=== PATIENT | female | born 1940 | race Asian ===

== ENCOUNTER 2020-03-28 10:03 | Inpatient (IN) | payer MEDICARE, MEDICAID ==
[~2020-03-28] VITALS: Ht 149.9 cm; Wt 69.3 kg
[2020-03-28] MEDS ORDERED: MAGOX PO (10:19)
[2020-03-28] MEDS ORDERED: WARF1 PO (10:19)
[2020-03-28] MEDS ORDERED: ATEN-188 PO (10:19)
[2020-03-28 10:54] LABS: BASOPHILS % (AUTO) 0.9 % (0.0-2.0); EOSINOPHILS % (AUTO) 1.2 % (1.0-6.0); HEMATOCRIT 43.1 % (36-46); HEMOGLOBIN 13.4 g/dL (12.0-16.0); LYMPHOCYTES # (AUTO) 1.1 K/uL (1.0-4.8); LYMPHOCYTES % (AUTO) 19.4 % (22.0-44.0); MEAN CORPUSCULAR HEMOGLOBIN 21.2 pg (26.0-34.0); MEAN CORPUSCULAR VOLUME 68 fL (80-100); MONOCYTES # (AUTO) 0.3 K/uL (0.1-1.0); NEUTROPHILS # (AUTO) 4.2 K/uL (1.8-7.7); NEUTROPHILS % (AUTO) 72.5 % (40.0-70.0); PLATELET COUNT (AUTO) 161 K/uL (150-450); RED BLOOD CELL COUNT(AUTO) 6.31 MIL/uL (4.00-5.20); RED CELL DISTRIBUTION WIDTH 15.8 % (11.5-14.5)
[2020-03-28 11:09] LABS: CALCIUM, TOTAL 9.3 mg/dL (8.8-10.5); CREATININE 0.92 mg/dL (0.60-1.30); POTASSIUM 4.4 mmol/L (3.5-5.1)
[2020-03-28 11:11] LABS: INR 1.1 (0.9-1.1); PROTHROMBIN TIME 10.8 SEC (9.4-11.6)
[2020-03-28 11:15] LABS: ALBUMIN 3.5 g/dL (3.4-5.0); BILIRUBIN,TOTAL 0.6 mg/dL (0.1-1.0); TOTAL PROTEIN, SERUM 7.7 g/dL (6.4-8.2)
[2020-03-28] MEDS ORDERED: ACETAMINOPHEN 325 MG TABLET PO PRN ×2 (14:15→16:15)
[2020-03-28] MEDS ORDERED: ONDANSETRON HCL 4 MG/2 ML VIAL IVP PRN ×2 (14:15→16:15)
[2020-03-28] MEDS ORDERED: 0.9% SODIUM CHLORIDE 10 ML SYRINGE IVP PRN (14:15)
[2020-03-28] MEDS ORDERED: ZOLPIDEM TARTRATE 5 MG TABLET PO PRN (16:15)
[2020-03-28] MEDS ORDERED: BISACODYL 10 MG RECTAL RECTAL SUPPOSITORY PR PRN (16:15)
[2020-03-28] MEDS ORDERED: HYDROCODONE/ACETAMINOPHEN 5-325 MG TABLET PO PRN (16:15)
[2020-03-28] MEDS ORDERED: MORPHINE SULFATE 2 MG/ML SYRINGE IVP PRN (16:15)
[2020-03-28] MEDS ORDERED: MAGNESIUM HYDROXIDE SUSPENSION 30 ML UDCUP PO PRN (16:15)
[2020-03-28] MEDS ORDERED: HydrALAZINE HCL 20 MG/ML VIAL IVP PRN (16:15)
[2020-03-28 16:53] LABS: APPEARANCE,URINE CLEAR (CLEAR); BILIRUBIN,URINE NEGATIVE (NEGATIVE); GLUCOSE, URINE (UA) NEGATIVE (NEGATIVE); KETONES,URINE NEGATIVE (NEGATIVE); LEUKOCYTE ESTERASE ,URINE NEGATIVE (NEGATIVE); NITRATE,URINE NEGATIVE (NEGATIVE); OCCULT BLOOD,URINE NEGATIVE (NEGATIVE); PH,URINE 7.5 (5.0-8.0); PROTEIN,URINE NEGATIVE (NEGATIVE); UROBILINOGEN,URINE 0.2 mg/dL (<=1.0)
[2020-03-28 17:23] VITALS: BP 163/99
[2020-03-28] MEDS ORDERED: PNEUMOCOCCAL VACCINE POLYVALENT 0.5 ML VIAL [PPSV23] IM ONE (18:15)
[2020-03-28 19:42] VITALS: BP 147/78
[2020-03-28] MEDS: DOCUSATE SODIUM 100 MG CAPSULE PO SCH (20:53)
[2020-03-28 23:46] VITALS: BP 149/69
[2020-03-28 23:50] VITALS: BP 156/73
[2020-03-28 23:52] VITALS: BP 138/71
[2020-03-29] MEDS: HEPARIN SODIUM,PORCINE 5,000 UNITS/ML VIAL SQ SCH ×2 (00:02→08:02)
[2020-03-29 05:26] VITALS: BP 136/63
[2020-03-29 07:29] LABS: BASOPHILS % (AUTO) 0.6 % (0.0-2.0); EOSINOPHILS % (AUTO) 1.9 % (1.0-6.0); HEMATOCRIT 44.2 % (36-46); HEMOGLOBIN 13.6 g/dL (12.0-16.0); LYMPHOCYTES # (AUTO) 1.9 K/uL (1.0-4.8); LYMPHOCYTES % (AUTO) 43.9 % (22.0-44.0); MEAN CORPUSCULAR HEMOGLOBIN 21.3 pg (26.0-34.0); MEAN CORPUSCULAR HGB CONC 30.9 G/dL (31.0-37.0); MEAN CORPUSCULAR VOLUME 69 fL (80-100); MONOCYTES # (AUTO) 0.4 K/uL (0.1-1.0); MONOCYTES % (AUTO) 8.3 % (2.0-9.0); NEUTROPHILS % (AUTO) 45.3 % (40.0-70.0); PLATELET COUNT (AUTO) 161 K/uL (150-450); RED BLOOD CELL COUNT(AUTO) 6.41 MIL/uL (4.00-5.20); RED CELL DISTRIBUTION WIDTH 15.8 % (11.5-14.5)
[2020-03-29 07:38] VITALS: BP 152/85
[2020-03-29 07:47] VITALS: BP 147/94
[2020-03-29 07:48] VITALS: BP 126/78
[2020-03-29 08:02] LABS: ALANINE AMINOTRANSFERASE 31 U/L (12-78); ALBUMIN 3.3 g/dL (3.4-5.0); ALKALINE PHOSPHATASE 75 U/L (46-116); ANION GAP 6 mmol/L (8-16); ASPARTATE AMINOTRANSFERASE 26 U/L (15-37); BILIRUBIN,TOTAL 0.8 mg/dL (0.1-1.0); CALCIUM, TOTAL 9.3 mg/dL (8.8-10.5); CARBON DIOXIDE 27 mmol/L (22-29); CHLORIDE 106 mmol/L (98-107); CREATININE 0.79 mg/dL (0.60-1.30); GLUCOSE,RANDOM 84 mg/dL (70-110); SODIUM SERUM 139 mmol/L (136-145); TOTAL PROTEIN, SERUM 7.7 g/dL (6.4-8.2); UREA NITROGEN, BLOOD 16 mg/dL (7-18)
[2020-03-29] MEDS: DOCUSATE SODIUM 100 MG CAPSULE PO SCH (08:03)
[2020-03-29 08:14] LABS: INR 1.1 (0.9-1.1); PROTHROMBIN TIME 11.4 SEC (9.4-11.6)
[2020-03-29 08:15] LABS: GLOMERULAR FILTR. RATE CALC > 60 mL/min (>60)
[2020-03-29] MEDS ORDERED: PANTOPRAZOLE SODIUM 40 MG DR TABLET PO SCH (09:00)
[2020-03-29] MEDS ORDERED: ATENOLOL 50 MG TABLET PO SCH (09:00)
[2020-03-29 10:56] VITALS: BP 108/57
[2020-03-29] MEDS ORDERED: MECL25TA39 PO (13:55)
[2020-03-29] MEDS ORDERED: WARFARIN SODIUM 1 MG TABLET PO SCH (17:00)
== END 2020-03-29 15:10 | disposition home or self-care (01) | DRG 149 ==
LOC: EMS 10:09 → 5S 16:01
PROVIDERS: ADMIT Internal Medicine; ATTEND Internal Medicine
DX: H81.10 Benign paroxysmal vertigo, unspecified ear (principal); I48.20 Chronic atrial fibrillation, unspecified; G90.8 Other disorders of autonomic nervous system; I10 Essential (primary) hypertension; R51 Headache; E78.00 Pure hypercholesterolemia, unspecified; Z88.8 Allergy status to other drugs, medicaments and biological substances
CPT/HCPCS: 70450; 93005; 93306; 93880; G0378; J1644

== ENCOUNTER → 2020-07-01 | Outpatient (CLI) | payer MEDICARE, MEDICAID ==
[~2020-07-01] MED LIST: ATEN-188 PO; MAGOX PO; MECL25TA39 PO; REGADENOSON 0.4 MG/5 ML PF SYRINGE IVP ONE; SESTAMIBI TC99M/UD ISOTOPE 1 EA INJ INJ ONE; WARF1TAB9 PO
[2020-07-01 09:00] VITALS: BP 169/95
[2020-07-01 09:27] VITALS: BP 147/74
== END | disposition home or self-care (01) ==
LOC: MSR 07:37
PROVIDERS: ATTEND Internal Medicine Cardiovascular Disease
DX: I25.10 Atherosclerotic heart disease of native coronary artery without angina pectoris (principal)
CPT/HCPCS: 78452; 93017; A9500; J2785

== ENCOUNTER 2024-09-13 09:59 | Emergency (ER) | payer MEDICARE ==
[~2024-09-13] VITALS: Ht 157.5 cm; Wt 59.1 kg
[~2024-09-13 09:59] MED LIST changes: +MAGN400T7 PO; -MAGOX PO; -REGADENOSON 0.4 MG/5 ML PF SYRINGE IVP ONE; -SESTAMIBI TC99M/UD ISOTOPE 1 EA INJ INJ ONE
[2024-09-13] MEDS ORDERED: APIX5TAB PO (10:02)
[2024-09-13] MEDS ORDERED: METO-325 PO (10:02)
[2024-09-13] MEDS ORDERED: NITR0.4T52 SL (10:04)
[2024-09-13 10:09] VITALS: TEMP 98.6
[2024-09-13 10:58] LABS: EOSINOPHILS % (AUTO) 1.1 % (1.0-6.0); HEMATOCRIT 40.5 % (36-46); HEMOGLOBIN 12.4 g/dL (12.0-16.0); LYMPHOCYTES # (AUTO) 0.9 K/uL (1.0-4.8); LYMPHOCYTES % (AUTO) 13.3 % (22.0-44.0); MEAN CORPUSCULAR HEMOGLOBIN 21.4 pg (26.0-34.0); MEAN CORPUSCULAR HGB CONC 30.7 G/dL (31.0-37.0); MEAN CORPUSCULAR VOLUME 70 fL (80-100); MONOCYTES # (AUTO) 0.5 K/uL (0.1-1.0); MONOCYTES % (AUTO) 7.5 % (2.0-9.0); NEUTROPHILS # (AUTO) 5.2 K/uL (1.8-7.7); NEUTROPHILS % (AUTO) 77.1 % (40.0-70.0); PLATELET COUNT (AUTO) 174 K/uL (150-450); RED BLOOD CELL COUNT(AUTO) 5.83 MIL/uL (4.00-5.20); RED CELL DISTRIBUTION WIDTH 16.7 % (11.5-14.5); WHITE BLOOD COUNT (AUTO) 6.8 K/uL (4.5-11.0)
[2024-09-13 11:17] LABS: ANION GAP 10 mmol/L (8-16); CALCIUM, TOTAL 8.8 mg/dL (8.8-10.5); CARBON DIOXIDE 28 mmol/L (22-29); CHLORIDE 102 mmol/L (98-107); CREATININE 0.84 mg/dL (0.60-1.30); GLOMERULAR FILTR. RATE CALC > 60 mL/min (>60); GLUCOSE,RANDOM 141 mg/dL (70-110); POTASSIUM 4.5 mmol/L (3.5-5.1); SODIUM SERUM 140 mmol/L (136-145); UREA NITROGEN, BLOOD 25 mg/dL (7-18)
[2024-09-13 11:26] LABS: TROPONIN I-HIGH SENSITIVITY 4 ng/L (<51)
[2024-09-13 11:44] VITALS: BP 140/69; PULSE 75; RESP 16; O2SAT 99
== END 2024-09-13 13:25 | disposition home or self-care (01) ==
LOC: EMS 10:00
DX: R42 Dizziness and giddiness (principal); E78.00 Pure hypercholesterolemia, unspecified; I10 Essential (primary) hypertension; I25.10 Atherosclerotic heart disease of native coronary artery without angina pectoris; I48.91 Unspecified atrial fibrillation; Z79.01 Long term (current) use of anticoagulants; Z95.5 Presence of coronary angioplasty implant and graft; Z88.8 Allergy status to other drugs, medicaments and biological substances
CPT/HCPCS: 80048; 83735; 84484; 85025; 93005; 99284

== ENCOUNTER 2025-09-26 12:08 | Inpatient (IN) | payer MEDICARE ==
[~2025-09-26] VITALS: Ht 149.9 cm; Wt 54.2 kg
[~2025-09-26 12:08] MED LIST changes: +APIX5TAB PO; -ATEN-188 PO; -MAGN400T7 PO; -MECL25TA39 PO; +METO-325 PO; +NITR0.4T52 SL; -WARF1TAB9 PO
[2025-09-26] MEDS ORDERED: IOHEXOL 350 MG/ML 100 ML VIAL ONE (12:22)
[2025-09-26 12:57] LABS: CALCIUM, TOTAL 8.9 mg/dL (8.8-10.5); CREATININE 0.58 mg/dL (0.60-1.30); GLOMERULAR FILTR. RATE CALC > 60 mL/min (>60); GLUCOSE,RANDOM 78 mg/dL (70-110); SODIUM SERUM 141 mmol/L (136-145); UREA NITROGEN, BLOOD 30 mg/dL (7-18)
[2025-09-26 13:02] LABS: ASPARTATE AMINOTRANSFERASE 26 U/L (15-37); CHOL/HDL RATIO 3.5 (3.9-5.7); LDL CHOL (CALC.) 154 mg/dL (0-130); TOTAL PROTEIN, SERUM 7.4 g/dL (6.4-8.2)
[2025-09-26 13:03] LABS: TROPONIN I-HIGH SENSITIVITY 7 ng/L (<51)
[2025-09-26 13:13] LABS: PLATELET COUNT (AUTO) 517 K/uL (150-450); RED BLOOD CELL COUNT(AUTO) 6.74 MIL/uL (4.00-5.20); RED CELL DISTRIBUTION WIDTH 17.1 % (11.5-14.5); WHITE BLOOD COUNT (AUTO) 5.5 K/uL (4.5-11.0)
[2025-09-26] MEDS: CLOPIDOGREL BISULFATE 300 MG TABLET PO ONE (13:41)
[2025-09-26] MEDS ORDERED: ACETAMINOPHEN 325 MG TABLET PO PRN (13:45)
[2025-09-26] MEDS ORDERED: ONDANSETRON HCL 4 MG/2 ML VIAL IVP PRN (13:45)
[2025-09-26 13:51] LABS: RBC MORPHOLOGY COMMENT ABNORMAL RBC MORPH
[2025-09-26] MEDS: ASPIRIN 300 MG RECTAL SUPPOSITORY PR ONE (13:57)
[2025-09-26 13:58] LABS: APPEARANCE,URINE CLEAR (CLEAR); GLUCOSE, URINE (UA) NEGATIVE (NEGATIVE); LEUKOCYTE ESTERASE ,URINE NEGATIVE (NEGATIVE); NITRATE,URINE NEGATIVE (NEGATIVE); OCCULT BLOOD,URINE NEGATIVE (NEGATIVE); PH,URINE DRUG SCREEN 5.5 (5.0-8.0); SPECIFIC GRAVITIY, URINE 1.047 (1.003-1.030)
[2025-09-26 14:04] LABS: AMPHET/METH SCREEN,URINE NEGATIVE (NEGATIVE); BARBITURATE SCREEN, URINE NEGATIVE (NEGATIVE); CANNABINOID SCREEN,URINE NEGATIVE (NEGATIVE); COCAINE SCREEN,URINE NEGATIVE (NEGATIVE); METHADONE SCREEN, URINE NEGATIVE (NEGATIVE)
[2025-09-26 14:08] LABS: ALCOHOL, URINE DRUG SCREEN NEGATIVE (NEGATIVE)
[2025-09-26 14:24] LABS: SQUAMOUS EPITHELIAL CELL,UR Rare /LPF (None Seen)
[2025-09-26] MEDS: 1: MAGNESIUM SULFATE 2 GM, MVI, ADULT NO.1 WITH VIT K 10 ML, THIAMINE 100 MG, FOLIC ACID IV SCH (14:40)
[2025-09-26 15:40] LABS: TROPONIN I-HIGH SENSITIVITY 7 ng/L (<51)
[2025-09-26 16:17] VITALS: BP 153/72; PULSE 93; RESP 16; TEMP 98.1; O2SAT 99
[2025-09-26] MEDS: HEPARIN SODIUM,PORCINE 5,000 UNITS/ML VIAL SQ SCH (17:57)
[2025-09-26 18:54] LABS: TROPONIN I-HIGH SENSITIVITY 8 ng/L (<51)
[2025-09-26 20:08] VITALS: BP 157/66; PULSE 77; RESP 15; TEMP 97.5; O2SAT 98
[2025-09-26] MEDS: DOCUSATE SODIUM 100 MG CAPSULE PO SCH (21:00)
[2025-09-26] MEDS: ROSUVASTATIN CALCIUM 10 MG TABLET PO SCH (21:00)
[2025-09-27] VITALS (11 sets, daily range): BP systolic 116–198; BP diastolic 62–106; PULSE 69–101; RESP 17–20; TEMP 97.3–98.6; O2SAT 97–100
[2025-09-27 01:41] LABS: TROPONIN I-HIGH SENSITIVITY 10 ng/L (<51)
[2025-09-27] MEDS ORDERED: SODIUM CHLORIDE 0.9% 0 ML ONE (03:21)
[2025-09-27] MEDS: CLOPIDOGREL BISULFATE 75 MG TABLET PO SCH (07:38)
[2025-09-27] MEDS: ASPIRIN 81 MG CHEWABLE TABLET PO SCH (07:38)
[2025-09-27 07:41] LABS: CALCIUM, TOTAL 8.4 mg/dL (8.8-10.5); CREATININE 0.48 mg/dL (0.60-1.30); GLOMERULAR FILTR. RATE CALC > 60 mL/min (>60); GLUCOSE,RANDOM 70 mg/dL (70-110); SODIUM SERUM 144 mmol/L (136-145); UREA NITROGEN, BLOOD 25 mg/dL (7-18)
[2025-09-27 07:45] LABS: RED BLOOD CELL COUNT(AUTO) 6.34 MIL/uL (4.00-5.20); RED CELL DISTRIBUTION WIDTH 17.1 % (11.5-14.5); WHITE BLOOD COUNT (AUTO) 5.7 K/uL (4.5-11.0)
[2025-09-27 09:21] LABS: RBC MORPHOLOGY COMMENT ABNORMAL RBC MORPH
[2025-09-27 09:23] LABS: PLATELET COUNT (AUTO) 174 K/uL (150-450)
[2025-09-27] MEDS ORDERED: MAGNESIUM SULFATE 2 GM, MVI, ADULT NO.1 WITH VIT K 10 ML, THIAMINE 100 MG, FOLIC ACID 1... IV SCH (12:30)
[2025-09-27] MEDS: 1: MAGNESIUM SULFATE 2 GM, MVI, ADULT NO.1 WITH VIT K 10 ML, THIAMINE 100 MG, FOLIC ACID IV SCH (14:51)
[2025-09-27 16:35] LABS: GLUCOMETER DEV NAME(LOC) 5S.1E; GLUCOSE,POINT OF CARE 127 MG/DL (70-110)
[2025-09-27] MEDS: ASPIRIN 300 MG RECTAL SUPPOSITORY PR SCH (16:54)
[2025-09-27] MEDS: LABETALOL HCL 5 MG/ML 20 ML VIAL IVP PRN (18:33)
[2025-09-28 04:07] VITALS: BP 159/92; PULSE 77; RESP 18; TEMP 97.7; O2SAT 96
[2025-09-28 07:12] VITALS: BP 183/69; PULSE 88; RESP 18; TEMP 97.9; O2SAT 95
[2025-09-28 15:10] VITALS: BP 170/94; PULSE 102; RESP 18; TEMP 97.7; O2SAT 99
[2025-09-28] MEDS: NITROGLYCERIN 2% (1 GM=INCH) OINTMENT PACKET TP SCH (18:20)
[2025-09-28 20:00] VITALS: BP 167/71; PULSE 96; RESP 18; TEMP 97.9; O2SAT 99
[2025-09-28 22:57] VITALS: BP 158/81; PULSE 84; RESP 20; O2SAT 100
[2025-09-29] MEDS: NITROGLYCERIN 2% (1 GM=INCH) OINTMENT PACKET TP SCH (00:06)
[2025-09-29 04:00] VITALS: BP 159/80; PULSE 74; RESP 18; TEMP 97.7; O2SAT 100
[2025-09-29 06:45] LABS: PLATELET COUNT (AUTO) 148 K/uL (150-450); RED BLOOD CELL COUNT(AUTO) 5.86 MIL/uL (4.00-5.20); RED CELL DISTRIBUTION WIDTH 16.7 % (11.5-14.5); WHITE BLOOD COUNT (AUTO) 6.7 K/uL (4.5-11.0)
[2025-09-29 08:00] VITALS: BP 150/83; PULSE 90; RESP 20; TEMP 97.7; O2SAT 100
[2025-09-29 10:27] LABS: RBC MORPHOLOGY COMMENT ABNORMAL RBC MORPH
[2025-09-29 10:38] LABS: CALCIUM, TOTAL 8.1 mg/dL (8.8-10.5); CREATININE 0.51 mg/dL (0.60-1.30); GLOMERULAR FILTR. RATE CALC > 60 mL/min (>60); GLUCOSE,RANDOM 101 mg/dL (70-110); SODIUM SERUM 140 mmol/L (136-145); UREA NITROGEN, BLOOD 14 mg/dL (7-18)
[2025-09-29 16:56] VITALS: BP 195/98; PULSE 95; RESP 20
[2025-09-29 17:29] VITALS: BP 172/71; PULSE 93; RESP 18; TEMP 98.1; O2SAT 97
[2025-09-29 20:02] VITALS: BP 148/62; PULSE 84; RESP 18; TEMP 97.7; O2SAT 96
[2025-09-29] MEDS: DOCUSATE SODIUM 100 MG/10 ML LIQUID UDCUP NG SCH (21:05)
[2025-09-30] VITALS (8 sets, daily range): BP systolic 112–168; BP diastolic 54–84; PULSE 78–98; RESP 18–20; TEMP 97–98.1; O2SAT 95–100
[2025-09-30] MEDS: POLYETHYLENE GLYCOL 3350 17 GM PACKET PO PRN (07:45)
[2025-09-30] MEDS: ASPIRIN 81 MG CHEWABLE TABLET PO SCH (07:45)
[2025-09-30 15:06] LABS: GLUCOMETER DEV NAME(LOC) 4E.2; GLUCOSE,POINT OF CARE 129 MG/DL (70-110)
[2025-09-30] MEDS: IPRATROPIUM BROMIDE 0.5 MG/2.5 ML NEB SOLUTION NEB PRN (16:11)
[2025-09-30] MEDS: BISACODYL 10 MG RECTAL RECTAL SUPPOSITORY PR PRN (16:57)
[2025-09-30 19:16] LABS: GLUCOMETER DEV NAME(LOC) 4E.2; GLUCOSE,POINT OF CARE 121 MG/DL (70-110)
[2025-10-01] VITALS (8 sets, daily range): BP systolic 105–152; BP diastolic 75–87; PULSE 60–101; RESP 1–20; TEMP 97.5–98.6; O2SAT 95–100
[2025-10-01 07:05] LABS: GLUCOMETER DEV NAME(LOC) 4E.2; GLUCOSE,POINT OF CARE 129 MG/DL (70-110)
[2025-10-01 07:05] LABS: GLUCOMETER DEV NAME(LOC) 4E.2; GLUCOSE,POINT OF CARE 133 MG/DL (70-110)
[2025-10-01 11:10] LABS: ABG BASE EXCESS 2.8 mmol/L (-2.0-3.0); ABG CARBOXYHEMOGLOBIN 1.0 % (0.5-1.5); ABG HCO3 27.0 mmol/L (21.0-28.0); ABG METHEMOGLOBIN 0.1 % (0.0-1.5); ABG OXYGEN CONTENT 16.5 mL/dL (15.0-23.0); ABG OXYGEN SATURATION 97.7 % (94.0-98.0); ABG OXYHEMOGLOBIN 96.6 % (94.0-98.0); ABG PCO2 38 mmHg (32.0-45.0); ABG PH 7.466 (7.350-7.450); ABG TOTAL HEMOGLOBIN 12.1 G/dL (12.0-16.0); FRACTIONATED INSPIRED OXYGEN 21.0 % (21-100.0); PO2, ARTERIAL BG 87.5 mmHg (83.0-108.0); SOURCE, BLOOD GAS ARTERIAL; TEMPERATURE, FAHRENHEIT, BG 98.2 FAHREN (96.0-98.6)
[2025-10-01 11:11] LABS: ALLEN TEST, BLOOD GAS Positive; FLOW, BLOOD GAS 0.00 L/min (0.00-15.00); O2 DEVICE,BLOOD GAS ROOM AIR (ROOM AIR); SITE, BLOOD GAS LFT RADIAL
[2025-10-01 12:15] LABS: GLUCOMETER DEV NAME(LOC) 4E.2; GLUCOSE,POINT OF CARE 123 MG/DL (70-110)
[2025-10-01] MEDS: BUDESONIDE 0.5 MG/2 ML NEB SOLUTION NEB SCH (20:36)
[2025-10-02] VITALS (7 sets, daily range): BP systolic 142–163; BP diastolic 59–90; PULSE 81–95; RESP 17–22; TEMP 97.5–97.9; O2SAT 97–100
[2025-10-02] MEDS ORDERED: DEXTROSE 50%-WATER 25 GM/50 ML SYRINGE IVP PRN (06:15)
[2025-10-02 08:26] LABS: GLUCOMETER DEV NAME(LOC) 5S.1E; GLUCOSE,POINT OF CARE 153 MG/DL (70-110)
[2025-10-02 08:26] LABS: GLUCOMETER DEV NAME(LOC) 5S.1E; GLUCOSE,POINT OF CARE 146 MG/DL (70-110)
[2025-10-02 08:26] LABS: GLUCOMETER DEV NAME(LOC) 5N.1D; GLUCOSE,POINT OF CARE 235 MG/DL (70-110)
[2025-10-02 12:30] LABS: GLUCOMETER DEV NAME(LOC) 5N.1D; GLUCOSE,POINT OF CARE 137 MG/DL (70-110)
[2025-10-02] MEDS: INSULIN REGULAR, HUMAN 100 UNITS/ML SQ PRN (18:14)
[2025-10-02 20:10] LABS: GLUCOMETER DEV NAME(LOC) 5S.1E; GLUCOSE,POINT OF CARE 157 MG/DL (70-110)
[2025-10-03] VITALS (11 sets, daily range): BP systolic 148–181; BP diastolic 71–95; PULSE 77–98; RESP 16–18; TEMP 97.5–98; O2SAT 94–99
[2025-10-03 00:05] LABS: GLUCOMETER DEV NAME(LOC) 5N.1D; GLUCOSE,POINT OF CARE 196 MG/DL (70-110)
[2025-10-03 07:26] LABS: PLATELET COUNT (AUTO) 178 K/uL (150-450); RED BLOOD CELL COUNT(AUTO) 5.46 MIL/uL (4.00-5.20); RED CELL DISTRIBUTION WIDTH 17.1 % (11.5-14.5); WHITE BLOOD COUNT (AUTO) 7.8 K/uL (4.5-11.0)
[2025-10-03 07:30] LABS: CALCIUM, TOTAL 9.3 mg/dL (8.8-10.5); CREATININE 0.55 mg/dL (0.60-1.30); GLOMERULAR FILTR. RATE CALC > 60 mL/min (>60); GLUCOSE,RANDOM 179 mg/dL (70-110); SODIUM SERUM 140 mmol/L (136-145); UREA NITROGEN, BLOOD 29 mg/dL (7-18)
[2025-10-03 20:11] LABS: GLUCOMETER DEV NAME(LOC) 5N.1D; GLUCOSE,POINT OF CARE 143 MG/DL (70-110)
[2025-10-03 20:11] LABS: GLUCOMETER DEV NAME(LOC) 5S.1E; GLUCOSE,POINT OF CARE 192 MG/DL (70-110)
[2025-10-03 20:11] LABS: GLUCOMETER DEV NAME(LOC) 5N.1D; GLUCOSE,POINT OF CARE 189 MG/DL (70-110)
[2025-10-03 22:21] LABS: GLUCOMETER DEV NAME(LOC) 5N.1D; GLUCOSE,POINT OF CARE 197 MG/DL (70-110)
[2025-10-04] VITALS (10 sets, daily range): BP systolic 160–181; BP diastolic 70–87; PULSE 79–94; RESP 16–18; TEMP 96.9–98; O2SAT 91–99
[2025-10-04 06:03] LABS: PLATELET COUNT (AUTO) 183 K/uL (150-450); RED BLOOD CELL COUNT(AUTO) 5.70 MIL/uL (4.00-5.20); RED CELL DISTRIBUTION WIDTH 17.3 % (11.5-14.5); WHITE BLOOD COUNT (AUTO) 7.5 K/uL (4.5-11.0)
[2025-10-04 06:10] LABS: CALCIUM, TOTAL 9.3 mg/dL (8.8-10.5); CREATININE 0.53 mg/dL (0.60-1.30); GLOMERULAR FILTR. RATE CALC > 60 mL/min (>60); GLUCOSE,RANDOM 208 mg/dL (70-110); SODIUM SERUM 138 mmol/L (136-145); UREA NITROGEN, BLOOD 35 mg/dL (7-18)
[2025-10-04 06:55] LABS: GLUCOMETER DEV NAME(LOC) 5N.1D; GLUCOSE,POINT OF CARE 214 MG/DL (70-110)
[2025-10-04 16:46] LABS: GLUCOMETER DEV NAME(LOC) 5S.1E; GLUCOSE,POINT OF CARE 195 MG/DL (70-110)
[2025-10-04 20:40] LABS: GLUCOMETER DEV NAME(LOC) 5N.1D; GLUCOSE,POINT OF CARE 203 MG/DL (70-110)
[2025-10-04 22:56] LABS: GLUCOMETER DEV NAME(LOC) 5N.1D; GLUCOSE,POINT OF CARE 179 MG/DL (70-110)
[2025-10-05] VITALS (13 sets, daily range): BP systolic 109–154; BP diastolic 39–71; PULSE 66–96; RESP 16–22; TEMP 97.3–98.5; O2SAT 93–100
[2025-10-05 06:48] LABS: PLATELET COUNT (AUTO) 185 K/uL (150-450); RED BLOOD CELL COUNT(AUTO) 5.06 MIL/uL (4.00-5.20); RED CELL DISTRIBUTION WIDTH 17.5 % (11.5-14.5); WHITE BLOOD COUNT (AUTO) 8.0 K/uL (4.5-11.0)
[2025-10-05 06:54] LABS: RBC MORPHOLOGY COMMENT ABNORMAL RBC MORPH
[2025-10-05 06:57] LABS: CREATININE 0.54 mg/dL (0.60-1.30); GLOMERULAR FILTR. RATE CALC > 60 mL/min (>60); GLUCOSE,RANDOM 167 mg/dL (70-110); SODIUM SERUM 138 mmol/L (136-145); UREA NITROGEN, BLOOD 45 mg/dL (7-18)
[2025-10-05 07:04] LABS: CALCIUM, TOTAL 8.8 mg/dL (8.8-10.5)
[2025-10-05] MEDS ORDERED: SODIUM CHLORIDE 0.9% 1,000 ML ONE (08:56)
[2025-10-05 11:00] LABS: ABG BASE EXCESS 8.3 mmol/L (-2.0-3.0); ABG CARBOXYHEMOGLOBIN 1.0 % (0.5-1.5); ABG HCO3 30.3 mmol/L (21.0-28.0); ABG METHEMOGLOBIN 0.1 % (0.0-1.5); ABG OXYGEN CONTENT 16.2 mL/dL (15.0-23.0); ABG OXYGEN SATURATION 99.9 % (94.0-98.0); ABG OXYHEMOGLOBIN 98.8 % (94.0-98.0); ABG PH 7.304 (7.350-7.450); ABG TOTAL HEMOGLOBIN 11.1 G/dL (12.0-16.0); FRACTIONATED INSPIRED OXYGEN 100.0 % (21-100.0); PO2, ARTERIAL BG 294.2 mmHg (83.0-108.0); SOURCE, BLOOD GAS ARTERIAL; TEMPERATURE, FAHRENHEIT, BG 97.3 FAHREN (96.0-98.6)
[2025-10-05 11:03] LABS: ABG PCO2 71 mmHg (32.0-45.0); ALLEN TEST, BLOOD GAS POS; O2 DEVICE,BLOOD GAS NON-REB (ROOM AIR); SITE, BLOOD GAS RT BRACHIAL
[2025-10-05 13:00] LABS: GLUCOMETER DEV NAME(LOC) 5S.1E; GLUCOSE,POINT OF CARE 179 MG/DL (70-110)
[2025-10-05 14:31] LABS: ABG BASE EXCESS 8.9 mmol/L (-2.0-3.0); ABG CARBOXYHEMOGLOBIN 0.7 % (0.5-1.5); ABG HCO3 31.1 mmol/L (21.0-28.0); ABG METHEMOGLOBIN 0.1 % (0.0-1.5); ABG OXYGEN CONTENT 15.8 mL/dL (15.0-23.0); ABG OXYGEN SATURATION 99.9 % (94.0-98.0); ABG OXYHEMOGLOBIN 99.1 % (94.0-98.0); ABG PH 7.361 (7.350-7.450); ABG TOTAL HEMOGLOBIN 11.1 G/dL (12.0-16.0); FRACTIONATED INSPIRED OXYGEN 100.0 % (21-100.0); PO2, ARTERIAL BG 152.2 mmHg (83.0-108.0); SOURCE, BLOOD GAS ARTERIAL; TEMPERATURE, FAHRENHEIT, BG 97.3 FAHREN (96.0-98.6)
[2025-10-05 14:32] LABS: ABG PCO2 62 mmHg (32.0-45.0); ALLEN TEST, BLOOD GAS POS; SITE, BLOOD GAS RT BRACHIAL
[2025-10-05 14:33] LABS: INSPIRATORY TIME, BG 0.90 SEC; O2 DEVICE,BLOOD GAS BIPAP (ROOM AIR); PATIENT RATE, BG 22.0 min.; SET RATE, BG 22.0 min.; SPONTANEOUS VT, BG 341 ml
[2025-10-05 14:46] LABS: GLUCOMETER DEV NAME(LOC) 5N.1D; GLUCOSE,POINT OF CARE 178 MG/DL (70-110)
[2025-10-05] MEDS ORDERED: SODIUM CHLORIDE 0.9% 250 ML IV ONE (16:29)
[2025-10-05] MEDS: PIPERACILLIN/TAZO 3.375 GM/D5W 50 ML IV SCH (16:32)
[2025-10-05 17:50] LABS: GLUCOMETER DEV NAME(LOC) ICUN.7; GLUCOSE,POINT OF CARE 105 MG/DL (70-110)
[2025-10-05 19:23] LABS: ABG BASE EXCESS 9.4 mmol/L (-2.0-3.0); ABG CARBOXYHEMOGLOBIN 1.0 % (0.5-1.5); ABG HCO3 31.8 mmol/L (21.0-28.0); ABG METHEMOGLOBIN 0.9 % (0.0-1.5); ABG OXYGEN CONTENT 16.8 mL/dL (15.0-23.0); ABG OXYGEN SATURATION 99.7 % (94.0-98.0); ABG OXYHEMOGLOBIN 97.8 % (94.0-98.0); ABG PCO2 55 mmHg (32.0-45.0); ABG PH 7.411 (7.350-7.450); ABG TOTAL HEMOGLOBIN 11.2 G/dL (12.0-16.0); FRACTIONATED INSPIRED OXYGEN 100.0 % (21-100.0); SOURCE, BLOOD GAS ARTERIAL; TEMPERATURE, FAHRENHEIT, BG 98.5 FAHREN (96.0-98.6)
[2025-10-05 19:25] LABS: ABG A-A DIFF O2 165.0 mmHg (10-20.0); ALLEN TEST, BLOOD GAS Positive; O2 DEVICE,BLOOD GAS BIPAP (ROOM AIR); PATIENT RATE, BG 24.0 min.; SET RATE, BG 22.0 min.; SITE, BLOOD GAS LFT RADIAL
[2025-10-05 19:26] LABS: INSPIRATORY TIME, BG 0.9 SEC; SPONTANEOUS VT, BG 379 ml
[2025-10-05 19:46] LABS: PO2, ARTERIAL BG 493.6 mmHg (83.0-108.0)
[2025-10-05] MEDS: METOCLOPRAMIDE HCL 5 MG/ML 2 ML VIAL IVP SCH (21:42)
[2025-10-05 23:55] LABS: GLUCOMETER DEV NAME(LOC) ICU.S7; GLUCOSE,POINT OF CARE 111 MG/DL (70-110)
[2025-10-06] VITALS (16 sets, daily range): BP systolic 93–124; BP diastolic 48–68; PULSE 77–103; RESP 17–26; TEMP 97.5–98.4; O2SAT 99–100
[2025-10-06 06:40] LABS: PLATELET COUNT (AUTO) 157 K/uL (150-450); RED BLOOD CELL COUNT(AUTO) 4.54 MIL/uL (4.00-5.20); RED CELL DISTRIBUTION WIDTH 16.6 % (11.5-14.5); WHITE BLOOD COUNT (AUTO) 9.8 K/uL (4.5-11.0)
[2025-10-06 06:40] LABS: GLUCOMETER DEV NAME(LOC) ICUN.7; GLUCOSE,POINT OF CARE 139 MG/DL (70-110)
[2025-10-06 06:49] LABS: CALCIUM, TOTAL 8.7 mg/dL (8.8-10.5); CREATININE 0.64 mg/dL (0.60-1.30); GLOMERULAR FILTR. RATE CALC > 60 mL/min (>60); GLUCOSE,RANDOM 148 mg/dL (70-110); SODIUM SERUM 141 mmol/L (136-145); UREA NITROGEN, BLOOD 47 mg/dL (7-18)
[2025-10-06 08:18] LABS: RBC MORPHOLOGY COMMENT ABNORMAL RBC MORPH
[2025-10-06 12:05] LABS: GLUCOMETER DEV NAME(LOC) ICU.S7; GLUCOSE,POINT OF CARE 170 MG/DL (70-110)
[2025-10-06 17:41] LABS: GLUCOMETER DEV NAME(LOC) ICU.S7; GLUCOSE,POINT OF CARE 149 MG/DL (70-110)
[2025-10-06 21:41] LABS: GLUCOMETER DEV NAME(LOC) ICU.S7; GLUCOSE,POINT OF CARE 107 MG/DL (70-110)
[2025-10-07] VITALS (17 sets, daily range): BP systolic 108–145; BP diastolic 50–80; PULSE 73–115; RESP 16–23; TEMP 97.2–98.3; O2SAT 100
[2025-10-07 01:16] LABS: GLUCOMETER DEV NAME(LOC) ICU.S7; GLUCOSE,POINT OF CARE 133 MG/DL (70-110)
[2025-10-07 06:12] LABS: PLATELET COUNT (AUTO) 168 K/uL (150-450); RED BLOOD CELL COUNT(AUTO) 4.73 MIL/uL (4.00-5.20); RED CELL DISTRIBUTION WIDTH 17.1 % (11.5-14.5); WHITE BLOOD COUNT (AUTO) 7.4 K/uL (4.5-11.0)
[2025-10-07 06:24] LABS: CALCIUM, TOTAL 8.7 mg/dL (8.8-10.5); CREATININE 0.59 mg/dL (0.60-1.30); GLOMERULAR FILTR. RATE CALC > 60 mL/min (>60); GLUCOSE,RANDOM 158 mg/dL (70-110); SODIUM SERUM 142 mmol/L (136-145); UREA NITROGEN, BLOOD 45 mg/dL (7-18)
[2025-10-07 06:31] LABS: GLUCOMETER DEV NAME(LOC) ICUN.7; GLUCOSE,POINT OF CARE 151 MG/DL (70-110)
[2025-10-07 08:03] LABS: RBC MORPHOLOGY COMMENT ABNORMAL RBC MORPH
[2025-10-07] MEDS ORDERED: SODIUM CHLORIDE 0.9% 250 ML IV ONE (08:15)
[2025-10-07 14:21] LABS: GLUCOMETER DEV NAME(LOC) ICU.S7; GLUCOSE,POINT OF CARE 142 MG/DL (70-110)
[2025-10-07 22:01] LABS: GLUCOMETER DEV NAME(LOC) ICUN.7; GLUCOSE,POINT OF CARE 179 MG/DL (70-110)
[2025-10-08] VITALS (12 sets, daily range): BP systolic 108–150; BP diastolic 45–72; PULSE 69–104; RESP 15–27; TEMP 97.2–98.4; O2SAT 89–100
[2025-10-08 05:16] LABS: GLUCOMETER DEV NAME(LOC) ICUN.7; GLUCOSE,POINT OF CARE 168 MG/DL (70-110)
[2025-10-08 07:31] LABS: CALCIUM, TOTAL 8.8 mg/dL (8.8-10.5); CREATININE 0.58 mg/dL (0.60-1.30); GLOMERULAR FILTR. RATE CALC > 60 mL/min (>60); GLUCOSE,RANDOM 157 mg/dL (70-110); SODIUM SERUM 145 mmol/L (136-145); UREA NITROGEN, BLOOD 43 mg/dL (7-18)
[2025-10-08 09:04] LABS: PLATELET COUNT (AUTO) 180 K/uL (150-450); RED BLOOD CELL COUNT(AUTO) 4.24 MIL/uL (4.00-5.20); RED CELL DISTRIBUTION WIDTH 16.9 % (11.5-14.5); WHITE BLOOD COUNT (AUTO) 7.4 K/uL (4.5-11.0)
[2025-10-08] MEDS: DEXTROSE 5%-WATER 500 ML IV ONE (09:47)
[2025-10-08 10:35] LABS: RBC MORPHOLOGY COMMENT ABNORMAL RBC MORPH
[2025-10-08 10:51] LABS: GLUCOMETER DEV NAME(LOC) ICU.S7; GLUCOSE,POINT OF CARE 135 MG/DL (70-110)
[2025-10-08 19:05] LABS: GLUCOMETER DEV NAME(LOC) ICU.S7; GLUCOSE,POINT OF CARE 193 MG/DL (70-110)
[2025-10-08 19:10] LABS: GLUCOMETER DEV NAME(LOC) ICUN.7; GLUCOSE,POINT OF CARE 229 MG/DL (70-110)
[2025-10-08] MEDS ORDERED: SODIUM CHLORIDE 0.9% 250 ML IV ONE (23:19)
[2025-10-08 23:30] LABS: GLUCOMETER DEV NAME(LOC) ICU.S7; GLUCOSE,POINT OF CARE 115 MG/DL (70-110)
[2025-10-09] VITALS (16 sets, daily range): BP systolic 78–164; BP diastolic 35–81; PULSE 69–100; RESP 17–24; TEMP 97.2–98.1; O2SAT 95–100
[2025-10-09 05:58] LABS: PLATELET COUNT (AUTO) 180 K/uL (150-450); RED BLOOD CELL COUNT(AUTO) 3.59 MIL/uL (4.00-5.20); RED CELL DISTRIBUTION WIDTH 17.0 % (11.5-14.5); WHITE BLOOD COUNT (AUTO) 10.5 K/uL (4.5-11.0)
[2025-10-09 06:12] LABS: ASPARTATE AMINOTRANSFERASE 45 U/L (15-37); CALCIUM, TOTAL 8.5 mg/dL (8.8-10.5); CREATININE 0.55 mg/dL (0.60-1.30); GLOMERULAR FILTR. RATE CALC > 60 mL/min (>60); GLUCOSE,RANDOM 145 mg/dL (70-110); SODIUM SERUM 143 mmol/L (136-145); TOTAL PROTEIN, SERUM 4.7 g/dL (6.4-8.2); UREA NITROGEN, BLOOD 39 mg/dL (7-18)
[2025-10-09 06:30] LABS: GLUCOMETER DEV NAME(LOC) ICU.S7; GLUCOSE,POINT OF CARE 141 MG/DL (70-110)
[2025-10-09 07:30] LABS: RBC MORPHOLOGY COMMENT ABNORMAL RBC MORPH
[2025-10-09 15:20] LABS: GLUCOMETER DEV NAME(LOC) ICUN.7; GLUCOSE,POINT OF CARE 145 MG/DL (70-110)
[2025-10-09] MEDS: PANTOPRAZOLE SODIUM 40 MG/VIAL IVP SCH (23:20)
[2025-10-10] VITALS (13 sets, daily range): BP systolic 119–152; BP diastolic 45–59; PULSE 78–99; RESP 17–22; TEMP 97.3–98.1; O2SAT 96–100
[2025-10-10 05:26] LABS: GLUCOMETER DEV NAME(LOC) 5N.2C; GLUCOSE,POINT OF CARE 195 MG/DL (70-110)
[2025-10-10 05:26] LABS: GLUCOMETER DEV NAME(LOC) 5N.2C; GLUCOSE,POINT OF CARE 202 MG/DL (70-110)
[2025-10-10 06:01] LABS: PLATELET COUNT (AUTO) 178 K/uL (150-450); RED BLOOD CELL COUNT(AUTO) 3.49 MIL/uL (4.00-5.20); RED CELL DISTRIBUTION WIDTH 17.3 % (11.5-14.5); WHITE BLOOD COUNT (AUTO) 11.4 K/uL (4.5-11.0)
[2025-10-10 06:15] LABS: CALCIUM, TOTAL 8.5 mg/dL (8.8-10.5); CREATININE 0.57 mg/dL (0.60-1.30); GLOMERULAR FILTR. RATE CALC > 60 mL/min (>60); GLUCOSE,RANDOM 111 mg/dL (70-110); SODIUM SERUM 143 mmol/L (136-145); UREA NITROGEN, BLOOD 38 mg/dL (7-18)
[2025-10-10 06:40] LABS: GLUCOMETER DEV NAME(LOC) 5S.2E; GLUCOSE,POINT OF CARE 115 MG/DL (70-110)
[2025-10-10 09:16] LABS: RBC MORPHOLOGY COMMENT ABNORMAL RBC MORPH
[2025-10-10] MEDS: RINGERS SOLUTION,LACTATED 1,000 ML IV ONE (10:55)
[2025-10-10] MEDS: MORPHINE SULFATE 4 MG/ML SYRINGE IVP PRN (23:05)
[2025-10-10 23:29] LABS: TROPONIN I-HIGH SENSITIVITY 15 ng/L (<51)
[2025-10-11] VITALS (18 sets, daily range): BP systolic 121–160; BP diastolic 45–85; PULSE 77–99; RESP 17–24; TEMP 97.5–98.8; O2SAT 97–100
[2025-10-11] MEDS: RINGERS SOLUTION,LACTATED 1,000 ML IV ONE (03:16)
[2025-10-11 06:55] LABS: GLUCOMETER DEV NAME(LOC) 5N.2C; GLUCOSE,POINT OF CARE 94 MG/DL (70-110)
[2025-10-11 06:55] LABS: GLUCOMETER DEV NAME(LOC) 5N.2C; GLUCOSE,POINT OF CARE 93 MG/DL (70-110)
[2025-10-11 06:59] LABS: CALCIUM, TOTAL 8.2 mg/dL (8.8-10.5); CREATININE 0.54 mg/dL (0.60-1.30); GLOMERULAR FILTR. RATE CALC > 60 mL/min (>60); GLUCOSE,RANDOM 88 mg/dL (70-110); SODIUM SERUM 142 mmol/L (136-145); UREA NITROGEN, BLOOD 28 mg/dL (7-18)
[2025-10-11 08:04] LABS: PLATELET COUNT (AUTO) 148 K/uL (150-450); RED BLOOD CELL COUNT(AUTO) 3.04 MIL/uL (4.00-5.20); RED CELL DISTRIBUTION WIDTH 17.1 % (11.5-14.5); WHITE BLOOD COUNT (AUTO) 12.6 K/uL (4.5-11.0)
[2025-10-11 10:16] LABS: RBC MORPHOLOGY COMMENT ABNORMAL RBC MORPH
[2025-10-11 11:45] LABS: GLUCOMETER DEV NAME(LOC) 5S.2E; GLUCOSE,POINT OF CARE 95 MG/DL (70-110)
[2025-10-11] MEDS: DEXTROSE 5%-LACTATED RINGERS 1,000 ML IV ONE (12:02)
[2025-10-11 12:50] LABS: GLUCOMETER DEV NAME(LOC) 5N.2C; GLUCOSE,POINT OF CARE 82 MG/DL (70-110)
[2025-10-11 18:06] LABS: GLUCOMETER DEV NAME(LOC) 5N.1D; GLUCOSE,POINT OF CARE 98 MG/DL (70-110)
[2025-10-11 22:16] LABS: GLUCOMETER DEV NAME(LOC) 4E.2; GLUCOSE,POINT OF CARE 115 MG/DL (70-110)
[2025-10-12] VITALS (9 sets, daily range): BP systolic 129–165; BP diastolic 63–80; PULSE 82–88; RESP 20–23; TEMP 94.1–97.7; O2SAT 94–100
[2025-10-12 02:26] LABS: GLUCOMETER DEV NAME(LOC) 4E.2; GLUCOSE,POINT OF CARE 123 MG/DL (70-110)
[2025-10-12 07:20] LABS: GLUCOMETER DEV NAME(LOC) 4E.2; GLUCOSE,POINT OF CARE 118 MG/DL (70-110)
[2025-10-12 09:02] LABS: PLATELET COUNT (AUTO) 156 K/uL (150-450); RED BLOOD CELL COUNT(AUTO) 4.21 MIL/uL (4.00-5.20); RED CELL DISTRIBUTION WIDTH 17.4 % (11.5-14.5); WHITE BLOOD COUNT (AUTO) 11.1 K/uL (4.5-11.0)
[2025-10-12 09:03] LABS: RBC MORPHOLOGY COMMENT ABNORMAL RBC MORPH
[2025-10-12 11:35] LABS: GLUCOMETER DEV NAME(LOC) 4E.2; GLUCOSE,POINT OF CARE 126 MG/DL (70-110)
[2025-10-12 17:25] LABS: GLUCOMETER DEV NAME(LOC) 4E.2; GLUCOSE,POINT OF CARE 131 MG/DL (70-110)
[2025-10-12 20:45] LABS: GLUCOMETER DEV NAME(LOC) 4E.2; GLUCOSE,POINT OF CARE 101 MG/DL (70-110)
[2025-10-13] VITALS (9 sets, daily range): BP systolic 114–148; BP diastolic 43–72; PULSE 70–86; RESP 18–22; TEMP 97–97.9; O2SAT 98–100
[2025-10-13 01:01] LABS: GLUCOMETER DEV NAME(LOC) 4E.2; GLUCOSE,POINT OF CARE 114 MG/DL (70-110)
[2025-10-13 09:11] LABS: GLUCOMETER DEV NAME(LOC) 4E.2; GLUCOSE,POINT OF CARE 86 MG/DL (70-110)
[2025-10-13 19:51] LABS: GLUCOMETER DEV NAME(LOC) 4E.2; GLUCOSE,POINT OF CARE 119 MG/DL (70-110)
[2025-10-13 19:51] LABS: GLUCOMETER DEV NAME(LOC) 4E.2; GLUCOSE,POINT OF CARE 147 MG/DL (70-110)
[2025-10-14] VITALS (10 sets, daily range): BP systolic 105–164; BP diastolic 55–96; PULSE 73–90; RESP 16–20; TEMP 97.4–98.1; O2SAT 95–100
[2025-10-14 06:20] LABS: PLATELET COUNT (AUTO) 178 K/uL (150-450); RED BLOOD CELL COUNT(AUTO) 4.07 MIL/uL (4.00-5.20); RED CELL DISTRIBUTION WIDTH 18.7 % (11.5-14.5); WHITE BLOOD COUNT (AUTO) 7.4 K/uL (4.5-11.0)
[2025-10-14 06:30] LABS: CALCIUM, TOTAL 8.5 mg/dL (8.8-10.5); CREATININE 0.54 mg/dL (0.60-1.30); GLOMERULAR FILTR. RATE CALC > 60 mL/min (>60); GLUCOSE,RANDOM 127 mg/dL (70-110); SODIUM SERUM 140 mmol/L (136-145); UREA NITROGEN, BLOOD 20 mg/dL (7-18)
[2025-10-14 09:19] LABS: RBC MORPHOLOGY COMMENT ABNORMAL RBC MORPH
[2025-10-14 13:21] LABS: GLUCOMETER DEV NAME(LOC) 4E.2; GLUCOSE,POINT OF CARE 129 MG/DL (70-110)
[2025-10-14 13:21] LABS: GLUCOMETER DEV NAME(LOC) 4E.2; GLUCOSE,POINT OF CARE 142 MG/DL (70-110)
[2025-10-14 13:21] LABS: GLUCOMETER DEV NAME(LOC) 4E.2; GLUCOSE,POINT OF CARE 154 MG/DL (70-110)
[2025-10-14] MEDS ORDERED: SODIUM CHLORIDE 0.9% 250 ML IV ONE (16:10)
[2025-10-14 18:10] LABS: GLUCOMETER DEV NAME(LOC) 4E.2; GLUCOSE,POINT OF CARE 135 MG/DL (70-110)
[2025-10-14 21:35] LABS: GLUCOMETER DEV NAME(LOC) 4E.2; GLUCOSE,POINT OF CARE 140 MG/DL (70-110)
[2025-10-15] VITALS (10 sets, daily range): BP systolic 132–150; BP diastolic 55–69; PULSE 68–89; RESP 16–21; TEMP 97.7–97.9; O2SAT 95–100
[2025-10-15 04:16] LABS: GLUCOMETER DEV NAME(LOC) 4E.2; GLUCOSE,POINT OF CARE 123 MG/DL (70-110)
[2025-10-15 06:30] LABS: GLUCOMETER DEV NAME(LOC) 4E.2; GLUCOSE,POINT OF CARE 96 MG/DL (70-110)
[2025-10-15 20:11] LABS: GLUCOMETER DEV NAME(LOC) 4E.2; GLUCOSE,POINT OF CARE 100 MG/DL (70-110)
[2025-10-15 20:11] LABS: GLUCOMETER DEV NAME(LOC) 4E.2; GLUCOSE,POINT OF CARE 151 MG/DL (70-110)
[2025-10-16] VITALS (11 sets, daily range): BP systolic 121–144; BP diastolic 60–78; PULSE 68–93; RESP 16–24; TEMP 97.7–98; O2SAT 92–100
[2025-10-16] MEDS: SODIUM CHLORIDE 0.45% 1,000 ML IV ONE (00:12)
[2025-10-16 00:31] LABS: GLUCOMETER DEV NAME(LOC) 4E.2; GLUCOSE,POINT OF CARE 122 MG/DL (70-110)
[2025-10-16 06:30] LABS: GLUCOMETER DEV NAME(LOC) 4E.2; GLUCOSE,POINT OF CARE 109 MG/DL (70-110)
[2025-10-16] MEDS: DEXTROSE 5%-0.45% SODIUM CHL 1,000 ML IV ONE (06:46)
[2025-10-16] MEDS: LABETALOL HCL 5 MG/ML 20 ML VIAL IVP ONE (10:38)
[2025-10-16] MEDS ORDERED: LIDOCAINE/PF 2% 5 ML VIAL ONE (12:00)
[2025-10-16] MEDS ORDERED: PROPOFOL 1% 20 ML VIAL IVP ONE (12:00)
[2025-10-16] MEDS ORDERED: 0.9% SODIUM CHLORIDE 10 ML VIAL ONE (12:00)
[2025-10-16] MEDS ORDERED: SODIUM CHLORIDE 0.9% 1,000 ML ONE (14:00)
[2025-10-16] MEDS ORDERED: NALOXONE HCL 0.4 MG/ML VIAL ONE (14:33)
[2025-10-16] MEDS ORDERED: FLUMAZENIL 0.1 MG/ML 5 ML VIAL IVP ONE (14:33)
[2025-10-16] MEDS ORDERED: EPINEPHrine 1:10,000 [1 MG/10 ML] SYRINGE ONE (14:33)
[2025-10-16] MEDS ORDERED: SODIUM TETRADECYL SULFATE 3% 60 MG/2 ML VIAL IVP ONE (14:33)
[2025-10-16] MEDS ORDERED: ATROPINE SULFATE 0.1 MG/ML 10 ML SYRINGE IVP ONE (14:33)
[2025-10-16 14:55] LABS: GLUCOMETER DEV NAME(LOC) 4E.2; GLUCOSE,POINT OF CARE 109 MG/DL (70-110)
[2025-10-16 14:55] LABS: GLUCOMETER DEV NAME(LOC) 4E.2; GLUCOSE,POINT OF CARE 75 MG/DL (70-110)
[2025-10-16 14:55] LABS: GLUCOMETER DEV NAME(LOC) 4E.2; GLUCOSE,POINT OF CARE 136 MG/DL (70-110)
[2025-10-16 18:46] LABS: GLUCOMETER DEV NAME(LOC) 4E.2; GLUCOSE,POINT OF CARE 81 MG/DL (70-110)
[2025-10-16] MEDS ORDERED: ROSU10TA98 NG (19:42)
[2025-10-16] MEDS ORDERED: LISI-893 GT (19:43)
[2025-10-16] MEDS ORDERED: CARV-165 GT (19:51)
[2025-10-16 22:26] LABS: GLUCOMETER DEV NAME(LOC) 4E.2; GLUCOSE,POINT OF CARE 81 MG/DL (70-110)
== END 2025-10-16 22:21 | disposition hospice, home (50) | DRG 64 ==
LOC: EMS 12:27 → EDH 13:40 → CMPBEDREQ 15:03 → 5S 16:07 → 4E 09-27 17:15 → 5S 10-01 12:00 → ICU 10-05 16:07 → 5S 10-09 16:55 → 4E 10-11 17:39
PROVIDERS: ADMIT Internal Medicine; ATTEND Internal Medicine
PROC: 5A09357 Assistance with Respiratory Ventilation, Less than 24 Consecutive Hours, Continuous Positive Airway Pressure (ICD-10-PCS; principal; 2025-10-05)
PROC: 5A09357 Assistance with Respiratory Ventilation, Less than 24 Consecutive Hours, Continuous Positive Airway Pressure (ICD-10-PCS; 2025-10-06)
PROC: 5A09357 Assistance with Respiratory Ventilation, Less than 24 Consecutive Hours, Continuous Positive Airway Pressure (ICD-10-PCS; 2025-10-07)
PROC: 5A09357 Assistance with Respiratory Ventilation, Less than 24 Consecutive Hours, Continuous Positive Airway Pressure (ICD-10-PCS; 2025-10-08)
PROC: 5A09357 Assistance with Respiratory Ventilation, Less than 24 Consecutive Hours, Continuous Positive Airway Pressure (ICD-10-PCS; 2025-10-09)
PROC: 5A09357 Assistance with Respiratory Ventilation, Less than 24 Consecutive Hours, Continuous Positive Airway Pressure (ICD-10-PCS; 2025-10-10)
PROC: 30233N1 Transfusion of Nonautologous Red Blood Cells into Peripheral Vein, Percutaneous Approach (ICD-10-PCS; 2025-10-11)
PROC: 5A09357 Assistance with Respiratory Ventilation, Less than 24 Consecutive Hours, Continuous Positive Airway Pressure (ICD-10-PCS; 2025-10-12)
PROC: 5A09357 Assistance with Respiratory Ventilation, Less than 24 Consecutive Hours, Continuous Positive Airway Pressure (ICD-10-PCS; 2025-10-14)
PROC: 5A09357 Assistance with Respiratory Ventilation, Less than 24 Consecutive Hours, Continuous Positive Airway Pressure (ICD-10-PCS; 2025-10-15)
PROC: 0DH63UZ Insertion of Feeding Device into Stomach, Percutaneous Approach (ICD-10-PCS; 2025-10-16)
PROC: 5A09357 Assistance with Respiratory Ventilation, Less than 24 Consecutive Hours, Continuous Positive Airway Pressure (ICD-10-PCS; 2025-10-16)
DX: I63.511 Cerebral infarction due to unspecified occlusion or stenosis of right middle cerebral artery (principal); E43 Unspecified severe protein-calorie malnutrition; J96.02 Acute respiratory failure with hypercapnia; J69.0 Pneumonitis due to inhalation of food and vomit; K29.71 Gastritis, unspecified, with bleeding; G93.40 Encephalopathy, unspecified; I16.1 Hypertensive emergency; E87.4 Mixed disorder of acid-base balance; Z66 Do not resuscitate; Z79.02 Long term (current) use of antithrombotics/antiplatelets; Z79.01 Long term (current) use of anticoagulants; G81.94 Hemiplegia, unspecified affecting left nondominant side; F03.90 Unspecified dementia, unspecified severity, without behavioral disturbance, psychotic disturbance, mood disturbance, and anxiety; D50.0 Iron deficiency anemia secondary to blood loss (chronic); J98.11 Atelectasis; R13.10 Dysphagia, unspecified; R47.01 Aphasia; D18.00 Hemangioma unspecified site; I10 Essential (primary) hypertension; E78.00 Pure hypercholesterolemia, unspecified; M25.561 Pain in right knee; M25.562 Pain in left knee; Z79.82 Long term (current) use of aspirin; Z86.73 Personal history of transient ischemic attack (TIA), and cerebral infarction without residual deficits; R29.720 NIHSS score 20; R47.1 Dysarthria and anarthria; Z88.8 Allergy status to other drugs, medicaments and biological substances; Z68.24 Body mass index [BMI] 24.0-24.9, adult; D18.09 Hemangioma of other sites; I48.0 Paroxysmal atrial fibrillation
CPT/HCPCS: 70450; 70496; 70498; 70551; 71045; 71250; 74018; 74019; 80048; 80053; 80061; 80307; 81001; 82271; 82805; 82948; 82962; 83036; 83735; 83880; 84484; 85025; 85610; 85730; 86850; 86900; 86901; 86923; 87081; 92526; 92610; 93005; 93306; 94640; 94660; 94760; 96365; 97110; 97112; 97163; 97167; 97168; 97530; 97535; 99285; G0378; J0169; J0360; J0461; J0690; J1200; J1644; J2270; J2312; J2405; J2470; J2543; J2704; J2765; J3411; J3475; J3490; J7030; J7050; J7060; J7120; P9016; 36415-L1; 36415-TC